=== PATIENT | male | born 1965 | race Asian ===

== ENCOUNTER 2022-08-17 13:18 | Emergency (ER) | payer OTHER ==
[2022-08-17 13:44] VITALS: RESP 18; BMI 20.7
[2022-08-17 14:15] LABS: HEMATOCRIT 47.9 % (35.4-49); HEMOGLOBIN 16.9 G/dL (11.7-16.9); MCH 32.3 pg (25.7-33.7); MCHC 35.4 g/dl (32.0-35.9); MEAN CELL VOLUME 91.4 fl (80-96); MEAN PLT VOLUME 8.3 fl (7.5-11.1); PLATELET COUNT 162.6 10^3/uL (134-434); RBC 5.24 10^6/uL (4.00-5.60); RDW 13.1 % (11.9-15.9); WHITE BLOOD COUNT 6.1 10^3/uL (4.0-10.8)
[2022-08-17 14:31] LABS: ALBUMIN 4.4 g/dl (3.4-5.0); BILIRUBIN,TOTAL 1.3 mg/dl (0.2-1); CREATININE 0.9 mg/dl (0.55-1.3)
[2022-08-17 14:34] LABS: PLATELET ESTIMATE ADEQUATE
[2022-08-17 15:47] VITALS: BP 138/86; PULSE 80; TEMP 98.2
== END 2022-08-17 16:50 | disposition home or self-care (01) ==
LOC: FER 13:18
DX: R00.2 Palpitations (principal); R42 Dizziness and giddiness
CPT/HCPCS: 36415; 80053; 84443; 84484; 85027; 93005; 99284-25

== ENCOUNTER 2024-02-06 23:19 | Emergency (ER) | payer OTHER ==
[2024-02-06 23:29] VITALS: BP 170/97; PULSE 82; RESP 18; TEMP 98.2; BMI 21.2
[2024-02-06] MEDS: SODIUM CHLORIDE 1,000 ML IV ONE (23:56)
[2024-02-07 01:09] LABS: PH,URINE 6.5 (5.0-8.0); URINE APPEARANCE CLEAR; URINE BILIRUBIN NEGATIVE (NEGATIVE); URINE COLOR YELLOW; URINE GLUCOSE (UA) NEGATIVE (NEGATIVE); URINE KETONE NEGATIVE (NEGATIVE); URINE LEUK ESTERASE NEGATIVE (NEGATIVE); URINE NITRITE NEGATIVE (NEGATIVE); URINE PROTEIN NEGATIVE (NEGATIVE); URINE UROBILINOGEN 0.2 mg/dL (0.2-1.0)
[2024-02-07 01:10] LABS: HEMATOCRIT 42.9 % (35.4-49); HEMOGLOBIN 15.2 GM/dL (11.7-16.9); MCH 31.6 pg (25.7-33.7); MCHC 35.5 g/dl (32.0-35.9); MEAN CELL VOLUME 88.9 fl (80-96); MEAN PLT VOLUME 8.1 fl (7.5-11.1); PLATELET COUNT 163 10^3/uL (134-434); RBC 4.83 M/mm3 (4.00-5.60); RDW 13.5 % (11.9-15.9); WHITE BLOOD COUNT 5.5 K/mm3 (4.0-10.0)
[2024-02-07 01:27] LABS: POTASSIUM 3.6 mmol/L (3.5-5.1)
[2024-02-07 01:30] LABS: ALBUMIN 3.9 g/dl (3.4-5.0); BLOOD UREA NITROGEN 15.4 mg/dL (7-18); CALCIUM 9.3 mg/dL (8.5-10.1)
[2024-02-07 01:35] LABS: BILIRUBIN,TOTAL 1.7 mg/dL (0.2-1); TOT PROT 7.3 g/dl (6.4-8.2)
[2024-02-07] MEDS ORDERED: PIPERACILLIN/TAZOBACTAM 4.5 GM VIAL IVPB ONE (01:49)
[2024-02-07] MEDS: PIPERACILLIN/TAZOB 4.5 GM 4.5 GM in DEXTROSE 5%-WATER 100 ML IVPB ONE (01:58)
== END 2024-02-07 02:35 | disposition home or self-care (01) ==
LOC: FER 23:19
PROC: 3E0337Z Introduction of Electrolytic and Water Balance Substance into Peripheral Vein, Percutaneous Approach (ICD-10-PCS; 2024-02-06)
PROC: 3E03329 Introduction of Other Anti-infective into Peripheral Vein, Percutaneous Approach (ICD-10-PCS; principal; 2024-02-07)
PROC: 3E03329 Introduction of Other Anti-infective into Peripheral Vein, Percutaneous Approach (ICD-10-PCS; 2024-02-07)
DX: K57.32 Diverticulitis of large intestine without perforation or abscess without bleeding (principal); R50.9 Fever, unspecified
CPT/HCPCS: 36415; 74176-TC; 80053; 81003; 85027; 99284-25